=== PATIENT | female | born 1990 | race American Indian/Alaskan Native ===

== ENCOUNTER 2016-11-06 17:43 | Emergency (ER) | payer MEDICAID, OTHER ==
[2016-11-06] MEDS ORDERED: Acetaminophen/HYDROcodone 325-10 MG Tab PO ONE (20:41)
--- NOTE | 2016-11-06 20:46 | EDM.PDOC ---
ED HPI GENERAL MEDICAL PROBLEM - General Chief Complaint: Lower Extremity Injury/Pain Stated Complaint: KNEE INJURY, [id number] Time Seen by Provider: 11/06/16 20:42 Source of Information: Reports: Patient History Limitations: Reports: No Limitations - History of Present Illness INITIAL COMMENTS - FREE TEXT/NARRATIVE: twisted left knee during basketball [employer]. - Related Data Allergies Allergy/AdvReac Type Severity Reaction Status Date / Time No Known Drug Allergies Allergy none Verified 01/13/14 11:15 Home Meds: Home Meds Vit #108/Iron/FA [ One Tablet] 1 tab PO DAILY 01/13/14 [History ] Social & Family History - Tobacco Use Smoking Status *Q: Never Smoker Second Hand Smoke Exposure: No - Alcohol Use Days Per Week of Alcohol Use: 0 - Recreational Drug Use Recreational Drug Use: No Review of Systems - Review of Systems Review Of Systems: ROS reveals no pertinent complaints other than HPI. ED EXAM, GENERAL - Physical Exam Exam: See Below Exam Limited By: No Limitations General Appearance: Alert, WD/WN, Mild Distress, Other (discomfort) Ears: Hearing Grossly Normal Throat/Mouth: Normal Voice, No Airway Compromise Head: Atraumatic Neck: Non-Tender, Full Range of Motion Respiratory/Chest: No Respiratory Distress Cardiovascular: Regular Rate, Rhythm GI/Abdominal: Soft, Non-Tender Extremities: Limited Range of Motion, Other (left knee mild swelling, tendermR/P , NV wnl, gait limited to pain) Neurological: Alert, Oriented, Normal Cognition, No Motor/Sensory Deficits Psychiatric: Tearful Skin Exam: Warm, Dry, Normal Color Lymphatic: No Adenopathy Course - Orders/Labs/Meds Orders: Active Orders 24 hr Category Date Time Status Knee 3V Lt [CR] Urgent Exams 11/06/16 19:22 Taken Acetaminophen/HYDROcodone [[place]ston 325-10 MG] Med 11/06/16 20:41 Once 1 tab PO ONETIME ONE - Re-Assessments/Exams Free Text/Narrative Re-Assessment/Exam: 11/06/16 20:43 results discussed with pt. Departure - Departure Time of Disposition: 20:43 Disposition: Home, Self-Care 01 Condition: Good Clinical Impression: Sprain of left knee Qualifiers: Encounter type: initial encounter Involved ligament of knee: lateral collateral ligament Qualified Code(s): S83.422A - Sprain of lateral collateral ligament of left knee, initial encounter - Discharge Information Instructions: Knee Sprain, Ijlj-[id number] Additional Instructions: 1) elevate leg as much as possible next 48 hours 2) ice intermittently for swelling 3) wear immobilizer and use crutches 4) see clinic Tuesday for possible MRI SCAN of knee rx given; vicodin 5/325mg bid prn x 6 - My Orders Last 24 Hours: My Active Orders 11/06/16 19:22 Knee 3V Lt [CR] Urgent 11/06/16 20:41 Acetaminophen/HYDROcodone [Aston 325-10 MG] 1 tab PO ONETIME ONE - Assessment/Plan Last 24 Hours: My Active Orders 11/06/16 19:22 Knee 3V Lt [CR] Urgent 11/06/16 20:41 Acetaminophen/HYDROcodone [[place]ston 325-10 MG] 1 tab PO ONETIME ONE
[2016-11-06 21:02] VITALS: BP 118/78
== END 2016-11-06 20:57 | disposition home or self-care (01) ==
LOC: DL.ED 17:43
DX: S83.422A Sprain of lateral collateral ligament of left knee, initial encounter (principal); X50.1XXA Overexertion from prolonged static or awkward postures, initial encounter; Y93.67 Activity, basketball
CPT/HCPCS: 73562; 99283; A9270

== ENCOUNTER 2019-01-24 07:01 | Inpatient (IN) | payer MEDICAID ==
[2019-01-24] MEDS: Lactated Ringers 1,000 ML IV SCH (08:00)
[2019-01-24] MEDS ORDERED: Acetaminophen 325 MG Tab PO PRN ×2 (08:31)
[2019-01-24] MEDS ORDERED: Ondansetron 4 MG/2 ML SDV IV PRN (08:31)
[2019-01-24] MEDS ORDERED: fentaNYL 100 MCG/2 ML SDV IVPUSH PRN (08:31)
[2019-01-24] MEDS ORDERED: Sodium Chloride 0.9% 10 ML Syringe FLUSH PRN (08:31)
[2019-01-24] MEDS ORDERED: Carboprost Tromethamine 250 MCG/1 ML Amp IM PRN (08:31)
[2019-01-24] MEDS ORDERED: Methylergonovine 0.2 MG/1 ML Amp IM PRN (08:31)
[2019-01-24] MEDS ORDERED: Misoprostol 400 MCG (4 X 100 MCG TAB) RECTAL PRN (08:31)
[2019-01-24] MEDS ORDERED: Lidocaine 1% 30 ML SDV INJECT PRN (08:31)
[2019-01-24] MEDS ORDERED: Lactated Ringers 1,000 ML IV ONE (08:31)
[2019-01-24] MEDS ORDERED: Tranexamic Acid 1,000 MG in Sodium Chloride 0.9% 100 ML IV PRN (08:31)
[2019-01-24] MEDS ORDERED: Oxytocin/Normal Saline 30 UNIT/500 ML BAG IV SCH (08:45)
[2019-01-24] MEDS ORDERED: Lactated Ringers 1,000 ML IV SCH ×2 (08:45)
[2019-01-24] MEDS: Oxytocin/Normal Saline 30 UNIT/500 ML BAG IV SCH (08:52)
--- NOTE | 2019-01-24 08:54 | PCM.SN ---
- Free Text/Narrative Note: OB History and Physical 01/24/19 Chief Complaint: induction of labor HPI: Nydia is a 28yo at 39w0d (CELSA 01/31/19) who presents for elective induction of labor. Risks, benefits and alternatives were discussed and patient would like to proceed. She reports active movement. She has had some cramping but no regular contractions. has been uncomplicated except for induced anemia. ROS: Negative for headache, nausea, vomiting, diarrhea, fever, chills, abdominal pain, hematuria, dysuria, contractions, loss of fluid or bleeding per vagina. Allergies: NKDA Medications: Medical Hx: anemia of , h/o large for gestation infant Surgical Hx: none Family Hx: Mom has asthma and dad has a heart defect. No known seizures, heart disease, defects, bleeding/clotting disorders. OB Hx: with spontaneous vaginal delivery of 9 pound infants at 40w5d and 41w6d. Social Hx: Lives with her 2 kids and boyfriend. Denies smoking, drinking or recreational drugs. Labs: Blood Type: O Positive Rubella: Immune HBSAg: Negative GBS: Negative Gonorrhea/Chlamydia: Not detected HIV: Nonreactive RPR: Nonreactive Physical Exam: Vitals: BP 131/72, HR 64, Temp 97.4 Gen: No distress CV: Well-perfused, 2+ distal pulses, regular rate and rhythm, no audible murmurs Resp: Non-labored, symmetrical chest expansion, clear to auscultation Abd: gravid, soft, non tender Ext: Moves all extremities, no edema. SVE: 04/03/-2, posterior FHT: 130, moderate variability, accelerations present, no decelerations apparent CTX: occasionally Assessment: Nydia is a 28yo at 39w0d (CELSA 01/31/19) who presents for elective induction of labor. Cat I Strip. Anemia of Plan: - admit for induction of labor - routine cares - start pitocin, up 2x2 to max of 20 - will AROM when able - will follow closely Sharla Gutierrez MD
[2019-01-25] MEDS: Lactated Ringers 1,000 ML IV SCH ×3 (00:58→03:48)
[2019-01-25] MEDS ORDERED: Sodium Bicarbonate 4.2% 2.5 MEQ/5 ML SDV ONE (01:16)
[2019-01-25] MEDS ORDERED: fentaNYL 100 MCG/2 ML SDV ONE (01:16)
--- NOTE | 2019-01-25 01:38 | PCM.SN ---
- Free Text/Narrative Note: Intrathecal. Sitting position, sterile prep and drape, 1 % lidocaine w bicarb for skinwheal to L3 L4 interspace. Introducer, 24 ga pencan x 1. Pos CSF neg heme neg parasthesia. 20 mcg pf sufenta, 30 mcg pf fentanyl 0.4 ml pf NS and 6 mg of 0.75% of bupivacaine injected after CSF aspiration. Pt to L lateral position. Procedure time 0115 to 0145
--- NOTE | 2019-01-25 03:05 | PCM.DEL ---
L & D Note - General Info Date of Service: 01/25/19 (0238) Mother's Due Date: 01/31/19 - Delivery Note Labor: Induced by Oxytocin Delivery Outcome: Livebirth Delivery Method: Spontaneous Vaginal Delivery-Single Infant Delivery Mode: Spontaneous Presentation: Left Occiput Anterior (FÁTIMA) Nuchal Cord: None Anesthesia Type: Intrathecal, Nitrous Oxide Amniotic Fluid Description: Clear Episiotomy Type: None Laceration: None Placenta: Intact, Spontaneous Cord: 3 Vessels Estimated Blood Loss: 250 Resuscitation Needed: No [place]: Stimulated Score 1 min: 9 Score 5 min: 9 Second Stage Interventions: Reports: Pushing Effectively Delivery Comments (Free Text/Narrative):: Nydia is a 28 yo at 39w1d who presented for elective induction of labor at 39w0d. Category 1 tracing upon admission. She was dilated to 2 cm upon admission. She progressed with induction with pitocin. Artificial rupture of membranes around 1645 with clear fluid. She was complete at 0230. She began pushing at approximately 0230. Delivered a liveborn male infant at 0238. Vigorous with spontaneous cry. Apgars of 9 and 9. weight 3655 g. Placenta delivered spontaneously intact with a 3 vessel cord. IV Pitocin was started shortly after delivery of the placenta. EBL 250 mL. Intact perineum. Hemostasis confirmed. Mother and infant doing well. Induction Criteria - Desir Score Desir Score Dilation: 1-2 cm Desir Score Effacement: 40-50% Desir Score Infant's Station: -2 Desir Score Consistency: Soft Desir Score Cervix Position: Midposition Desir Score Total: 6 Desir Score Presenting Part: Reports: Cephalic - Induction Gestational Age >/= 39 wks: Yes Estimated Pelvis: Reports: Adequate Reassuring Monitoring Strip: Yes Absence of Tachy Systole: Yes - General Info Date of Service: 01/25/19 Functional Status: Reports: Pain Controlled - Patient Data Vitals - Most Recent: Last Vital Signs Temp 96.7 F 01/24/19 22:53 Pulse 74 01/24/19 23:30 Resp 16 01/24/19 19:30 BP 155/82 H 01/24/19 23:30 Pulse Ox Weight - Most Recent: 112.037 kg - Problem List Review Problem List Initiated/Reviewed/Updated: Yes
[2019-01-25] MEDS ORDERED: Metoclopramide 10 MG/2 ML SDV IVPUSH STA (03:28)
[2019-01-25] MEDS ORDERED: diphenhydrAMINE 50 MG/ML SDV IVPUSH PRN (03:32)
[2019-01-25] MEDS: Oxytocin/Normal Saline 30 UNIT/500 ML BAG IV SCH (03:43)
[2019-01-25] MEDS ORDERED: Sodium Chloride 0.9% 10 ML Syringe FLUSH PRN (05:18)
[2019-01-25] MEDS ORDERED: Simethicone 80 MG Tab.Chew PO PRN (05:18)
[2019-01-25] MEDS ORDERED: Oxytocin 10 Units/1 ML SDV IM PRN (05:18)
[2019-01-25] MEDS ORDERED: Zolpidem 5 MG Tab PO PRN (05:18)
[2019-01-25] MEDS ORDERED: Benzocaine/Menthol 20%-0.5% Spray 56 GM Canister TOP PRN (05:18)
[2019-01-25] MEDS: Prenatal Multivitamin with Calcium/Folic Acid/Iron Tab PO SCH (08:39)
[2019-01-25] MEDS: Docusate Sodium 100 MG Cap PO PRN ×2 (08:39→20:47)
[2019-01-25] MEDS: Ibuprofen 800 MG Tab PO PRN (20:47)
[2019-01-26] MEDS: Prenatal Multivitamin with Calcium/Folic Acid/Iron Tab PO SCH (08:17)
[2019-01-26] MEDS: Docusate Sodium 100 MG Cap PO PRN (08:17)
[2019-01-26] MEDS: Ibuprofen 800 MG Tab PO PRN (08:17)
[2019-01-26 08:31] VITALS: BP 124/76; PULSE 71
--- NOTE | 2019-01-26 09:06 | PCM.SN ---
- Free Text/Narrative Note: Progress Note/Discharge Summary Admit date: 01/24/19 for induction, 01/25/19 delivery Discharge date: 01/26/19 Delivering Physician: Dr. Gutierrez Discharging Physician: Dr. Gutierrez Admission Diagnoses: 28 y/o at 39w0d Anemia of Elective induction of labor Summary of Hospital Course: Nydia is a 28 yo at 39w1d who presented for elective induction of labor at 39w0d. Category 1 tracing upon admission. She was dilated to 2 cm upon admission. She progressed with induction with pitocin. Artificial rupture of membranes around 1645 with clear fluid. She was complete at 0230. She began pushing at approximately 0230. Delivered a liveborn male infant at 0238 via . Vigorous infant with spontaneous cry. Apgars of 9 and 9. weight 3655 g. Placenta delivered spontaneously intact with a 3 vessel cord. IV Pitocin was started shortly after delivery of the placenta. EBL 250 mL. Intact perineum. Hemostasis confirmed. Mother and infant doing well. The patient had an unremarkable course. By day 1, the patient was doing well; ambulating, voiding, and tolerating general diet. Her pain was well controlled with oral pain medications, and was she was discharged to home. Discharge Exam: Gen: No distress CV: Well-perfused, 2+ distal pulses Resp: Non-Labored, symmetrical chest expansion Abd: Fundus is firm and below umbilicus. Ext: Moves all extremities well, no edema. Discharge (or Final) Diagnoses: 1. Intrauterine at 39w1d at time of delivery 2. over intact perineum 3. Anemia of Discharge Details: Admission Condition: good Discharged Condition: good Disposition: Home Discharge Medications: over the counter ibuprofen Diet: regular diet Activity: no heavy lifting for 2 weeks, pelvic rest for 6 weeks. Follow-up with Dr. Gutierrez in 6-8 weeks for visit. Sharla Gutierrez MD
[2019-01-26] MEDS ORDERED: fentaNYL 100 MCG/2 ML SDV ITHECAL ONE (10:14)
[2019-01-26] MEDS ORDERED: Sodium Bicarbonate 4.2% 2.5 MEQ/5 ML SDV ONE (10:14)
--- NOTE | 2019-01-26 11:46 | PCM.SN ---
- Free Text/Narrative Note: Post Delivery Day #0 Subjective: Patient is ambulating without assistance and tolerating oral intake. Her pain has been well-controlled, and her bleeding has been minimal. She has not had nausea, vomiting, blurred vision, diarrhea, shortness of breath, or any other complaints. She is bottle feeding. Objective: Vitals stable Gen: No distress CV: Well-perfused, 2+ distal pulses Resp: Non-labored, symmetrical chest expansion Abd: Fundus is firm and below umbilicus. Ext: Moves all extremities Well, no edema. Assessment: Status post ( day #1) who is doing well. Anemia of Intact perineum Plan: - Routine nursing - vitamin - Likely discharge tomorrow Sharla Gutierrez MD
== END 2019-01-26 10:15 | disposition home or self-care (01) | DRG 807 ==
LOC: DL.OBCHECK 07:01 → DL.OB 08:31 → EDSTATUS 22:44 → OBSVTOIN 01-25 03:11
PROVIDERS: ADMIT Family Medicine; ATTEND Family Medicine
PROC: 10E0XZZ Delivery of Products of Conception, External Approach (ICD-10-PCS; principal; 2019-01-25)
PROC: 10907ZC Drainage of Amniotic Fluid, Therapeutic from Products of Conception, Via Natural or Artificial Opening (ICD-10-PCS; 2019-01-25)
PROC: 3E033VJ Introduction of Other Hormone into Peripheral Vein, Percutaneous Approach (ICD-10-PCS; 2019-01-25)
PROC: 3E0R3BZ Introduction of Anesthetic Agent into Spinal Canal, Percutaneous Approach (ICD-10-PCS; 2019-01-25)
DX: O99.02 Anemia complicating childbirth (principal); D64.9 Anemia, unspecified; Z37.0 Single live birth; Z3A.39 39 weeks gestation of pregnancy
CPT/HCPCS: 36415; 59409; 85027; A9270-GY; J2405; J2590; J2765; J3010; J7120

== ENCOUNTER 2021-01-29 20:10 | Inpatient (IN) | payer MEDICAID ==
[2021-01-29] MEDS ORDERED: Lidocaine 1% 30 ML SDV INJECT PRN (20:54)
[2021-01-29] MEDS ORDERED: Tranexamic Acid 1,000 MG in Sodium Chloride 0.9% 100 ML IV PRN (20:54)
[2021-01-29] MEDS ORDERED: Carboprost Tromethamine 250 MCG/1 ML Amp IM PRN (20:54)
[2021-01-29] MEDS ORDERED: Naloxone 2 MG/2 ML Syringe IVPUSH PRN (20:54)
[2021-01-29] MEDS ORDERED: Lactated Ringers 1,000 ML IV ONE (20:54)
[2021-01-29] MEDS ORDERED: Ondansetron 4 MG/2 ML SDV IVPUSH PRN ×2 (20:54)
[2021-01-29] MEDS ORDERED: ePHEDrine 50 MG/ML SDV IVPUSH PRN (20:54)
[2021-01-29] MEDS ORDERED: Acetaminophen 325 MG Tab PO PRN (20:54)
[2021-01-29] MEDS ORDERED: Promethazine 25 MG/ML SDV IM PRN (20:54)
[2021-01-29] MEDS ORDERED: Misoprostol 400 MCG (4 X 100 MCG TAB) RECTAL PRN (20:54)
[2021-01-29] MEDS ORDERED: Methylergonovine 0.2 MG/1 ML Amp IM PRN (20:54)
[2021-01-29] MEDS ORDERED: fentaNYL 100 MCG/2 ML SDV IVPUSH PRN (20:54)
[2021-01-29] MEDS ORDERED: Lactated Ringers 1,000 ML IV SCH (21:00)
[2021-01-29] MEDS ORDERED: Lactated Ringers 500 ML IV SCH (21:00)
[2021-01-29] MEDS ORDERED: Oxytocin/Normal Saline 30 UNIT/500 ML BAG IV SCH (21:00)
[2021-01-29] MEDS ORDERED: EPINEPHrine 1 MG/ML SDV ONE ×2 (21:15→21:25)
[2021-01-29] MEDS ORDERED: Sodium Chloride 0.9% 20 ML SDV IV ONE (21:15)
[2021-01-29] MEDS ORDERED: Sodium Bicarbonate 4.2% 2.5 MEQ/5 ML SDV ONE ×2 (21:15→21:26)
[2021-01-29] MEDS ORDERED: fentaNYL 100 MCG/2 ML SDV ITHECAL ONE (21:15)
[2021-01-29] MEDS ORDERED: fentaNYL 100 MCG/2 ML SDV ONE (21:25)
--- NOTE | 2021-01-29 21:54 | PCM.SN.2 ---
- Free Text/Narrative Note: Intrathecal. Sitting position, sterile prep and drape. 1% lidocaine w bicarb for skinwheal to L3 L4 interspace. Introducer, 24 ga Pencan x 1. Pos CSF, neg heme, neg parasthesia. 1:1000 pf Epi wash, 20 mcg pf Sufenta, 30 mcg pf Fentanyl, 0.4 ml pf NS and 6 mg of 0.75% Marcaine injected after CSF aspiration. Pt to L la teral position. Procedure timer 0115 to 7536
--- NOTE | 2021-01-29 22:42 | HP ---
CHIEF COMPLAINT: Increased force and frequency of contractions. HISTORY OF PRESENT ILLNESS: 30-year-old 4, para 3-0-0-3, currently at 39-3/7 weeks' gestation based on 6-week ultrasound reports she started having contractions around 4 o'clock this morning that have become more consistent and stronger throughout the day. Called Labor and Delivery this evening with contractions about every 7 to 8 minutes, but wanted to wait until she was done with her laundry before coming into the hospital. Reports some leakage or discharge throughout the day. No significant bleeding. movement has been good. No symptoms of labor, and denies any recent signs of illness or other concerns. OB HISTORY: She had an ultrasound, 6 weeks' gestation for confirmation of dating. Normal 20-week ultrasound with posterior placenta. 29-week ultrasound performed showing baby at the 76 percentile for growth. LABS: Blood type O positive. Antibody screen negative. Rubella immune. Syphilis negative in the first and third trimesters. Hepatitis B negative. HIV negative. Gonorrhea, chlamydia negative. TSH normal 0.71. Hepatitis C nonreactive. Wet prep negative. Group B strep negative. Urine culture in the end of December for Staph epidermidis. Quad screen was normal. 1-hour glucose tolerance test of 138. 3-hour test was normal. #1 delivered, 06/16/2011, 41 weeks 6 days' gestation, term female , 4120 g, intrathecal anesthesia. Her name is Tiny. #2, 01/13/2014, 40 weeks 5 days' gestation, term male , weighing 4196 g, intrathecal for anesthesia. His name is [place]. #3, 01/25/2019, 39 weeks 1 day gestation, male weighing 3655 g. His name is Fay. PAST MEDICAL HISTORY: Blood type O positive, history of delivery of large for gestational age infants, history of chickenpox. SURGICAL HISTORY: None. FAMILY HISTORY: Mother alive with asthma. Father alive with a heart defect and requires a pacemaker. There are 3 sisters, 2 of whom are healthy. The third one is unknown to the patient. 9 brothers, all reportedly healthy. Maternal and paternal grandparents are all , but she reports they were all healthy. There was a cousin with an arrhythmia. No family history of seizure disorders, heart disease, defects, bleeding problems, or clotting disorders. SOCIAL HISTORY: The patient has a history of some light cigarette smoking. No alcohol or drug use in . She is not currently working and raises the children. Her boyfriend, Fay, is working a job at the [employer] and they live here in [place]. MEDICATIONS: vitamin 1 daily, iron 325 mg daily. ALLERGIES: No known drug allergies. REVIEW OF SYSTEMS: She denies any chest pain, shortness of breath, headaches, blurry vision, nausea, vomiting, diarrhea, constipation, fevers, chills, new skin rashes, changes in edema, change in urine output, diarrhea, constipation, or other acute concerns. Otherwise, pertinent findings under the HPI. OBJECTIVE: Vital Signs: Blood pressure 137/78, temperature is 97.2, pulse 76, respiratory rate of 18. HEENT: Grossly unremarkable. Neck: Supple without adenopathy. Heart: Regular without murmur. Lungs: Clear to auscultation bilaterally. Abdomen: Gravid, soft, nontender. Positive bowel sounds. heart tones tracing 140 beats per minute at baseline. Moderate tezd-nd-srar variability. Accelerations noted. [place] showing contractions at every 3 to 4 minutes. Genitourinary: Initial exam of 5+ cm, 100% effaced, bulging bag of water, vertex presentation per nurse's exam. Extremities: No edema, erythema, or tenderness noted. Neurologic: No focal deficits. ASSESSMENT: 1. Active labor. 2. 4, para 3-0-0-3. 3. 39-3/7 weeks' gestation. 4. History of hemorrhage. 5. History of babies with macrosomia. 6. Anemia of . 7. Poor weight gain of . She has actually lost 23 pounds. 8. Blood type O positive, rubella immune, and group B Streptococcus negative. PLAN: At this time, the patient is requesting intrathecal, and so after she receives that will anticipate performing artificial rupture of membranes and eventual vaginal delivery. Mother plans on bottle feeding and will be anticipating discharge home on day #1 or 2, pending clinical course for mother and baby. MODL /[id number] [facility]
[2021-01-29] MEDS ORDERED: Simethicone 80 MG Tab.Chew PO PRN (23:50)
[2021-01-29] MEDS ORDERED: Benzocaine/Menthol 20%-0.5% Spray 78 GM Cannister TOP PRN (23:50)
--- NOTE | 2021-01-30 00:36 | DEL ---
DATE: 01/29/2021 PREPROCEDURE DIAGNOSES: 1. 39 and 3/7 weeks intrauterine based on 6-week ultrasound. 2. 4, para 3-0-0-3. 3. History of hemorrhage. 4. History of delivery of macrosomic infants. 5. Anemia of . 6. Weight loss of , down 23 pounds. 7. Blood type O positive, rubella immune, and group B strep negative. POSTPROCEDURE DIAGNOSES: 1. 39 and 3/7 weeks intrauterine based on 6-week ultrasound. 2. 4, now para 4-0-0-4. Status post uncomplicated spontaneous vaginal delivery. 3. History of hemorrhage. 4. History of delivery of macrosomic infants. 5. Anemia of . 6. Weight loss of , down 23 pounds. 7. Blood type O positive, rubella immune, and group B strep negative. BRIEF HISTORY: A 30-year-old female, presented to the hospital with spontaneous onset of labor and was about 6 cm dilated and 100% effaced. Orders were placed and labs received. Intrathecal administered for pain relief and then artificial rupture of membranes performed with good return of clear fluid. She then was able to labor peacefully about an hour and a half before reaching complete and then pushed for 6 contractions resulting in delivery as below. DETAILS: With the patient in dorsal lithotomy position, she delivered a viable female in the ROP position over intact perineum. Baby was dried, stimulated. Nose and mouth bulb suctioned and placed up on mother's abdomen. After a delay, 3-vessel umbilical cord was doubly clamped and then cut and then cord blood sample obtained. Placenta delivered by gentle cord traction and concomitant uterine massage, inspected, and intact. Mother tolerated procedure well. COMPLICATIONS: None EBL: 100 mL. FINDINGS: Viable female . Weight 3580 grams and 8 & 9 score. DISPOSITION: Mother and baby to stay in the room to initiate the skin to skin and bonding. [facility] /[id number] [facility]
[2021-01-30] MEDS: Prenatal Multivitamin with Calcium/Folic Acid/Iron Tab PO SCH (08:41)
[2021-01-30] MEDS: Docusate Sodium 100 MG Cap PO PRN ×2 (08:41→20:37)
[2021-01-30] MEDS: Ferrous Sulfate 325 MG Tab PO SCH (08:41)
[2021-01-30] MEDS: Ibuprofen 800 MG Tab PO PRN ×2 (08:41→20:37)
--- NOTE | 2021-01-30 10:55 | PCM.PNPP ---
- General Info Date of Service: 01/30/21 Subjective Update: Patient is doing well. Some uterine cramping and tenderness but appropriate. No other complaints. No fever, chills, nausea, vomiting, headache or lightheadedness. Bottle feeding. Urinating without difficulty. Tolerating a general diet. Has been ambulating. No concerns per patient or per nursing staff. Functional Status: Reports: Pain Controlled, Tolerating Diet, Ambulating, New Symptoms - Review of Systems General: Reports: No Symptoms HEENT: Reports: No Symptoms Pulmonary: Reports: No Symptoms Cardiovascular: Reports: No Symptoms Gastrointestinal: Reports: Abdominal Pain Genitourinary: Reports: No Symptoms Musculoskeletal: Reports: No Symptoms Skin: Reports: No Symptoms Neurological: Reports: No Symptoms - General Info Date of Service: 01/30/21 - Patient Data Vital Signs - Most Recent: Last Vital Signs Temp 37.3 C 01/30/21 09:07 Pulse 79 01/30/21 09:07 Resp 16 01/30/21 09:07 BP 107/65 01/30/21 09:07 Pulse Ox Weight - Most Recent: 108.409 kg I&O - Last 24 Hours: Intake & Output 01/29/21 01/30/21 01/30/21 22:59 06:59 14:59 Intake Total 1450 Balance 1450 Lab Results - Last 24 Hours: Laboratory Results - last 24 hr 01/29/21 01/29/21 Range/Units 20:30 21:05 WBC 12.5 H (5.0-10.0) 10^3/uL RBC 4.55 (4.2-5.4) 10^6/uL Hgb 11.4 L (12.0-16.0) g/dL Hct 35.0 L (37.0-47.0) % MCV 76.9 L (80-100) fL MCH 25.1 L (27.0-34.0) pg MCHC 32.6 L (33.0-35.0) g/dL Plt Count 221 (150-450) 10^3/uL Neut % (Auto) 72.3 (42.2-75.2) % Lymph % (Auto) 20.7 (20.5-50.1) % [place] % (Auto) 5.7 (2-8) % Eos % (Auto) 1.1 (1.0-3.0) % Baso % (Auto) 0.2 (0.0-1.0) % SARS-CoV-2 RNA (URBAN) Negative (NEGATIVE) Med Orders - Current: Current Medications Acetaminophen (Acetaminophen 325 Mg Tab) 650 mg PO Q4H PRN PRN Reason: Pain (Mild 1-3) and fever Benzocaine/Menthol (Benzocaine/Menthol 20%-0.5% [place] 78 Gm Cannister) 0 gm TOP Q4H PRN PRN Reason: Perineal comfort measures Docusate Sodium (Docusate Sodium 100 Mg Cap) 100 mg PO BID PRN PRN Reason: Constipation Last Admin: 01/30/21 08:41 Dose: 100 mg Documented by: Ferrous Sulfate (Ferrous Sulfate 325 Mg Tab) 325 mg PO WITHBREAKFAST PAT Last Admin: 01/30/21 08:41 Dose: 325 mg Documented by: Tranexamic Acid 1,000 mg/ (Sodium Chloride) 110 mls @ 660 mls/hr IV ONETIME PRN PRN Reason: Bleeding Oxytocin/Sodium Chloride (Pitocin In Ns 30 Unit/500 Ml) 30 unit in 500 mls @ 2 mls/hr IV TITRATE PAT; Protocol Last Titration: 01/30/21 02:34 Dose: Infused Documented by: Ibuprofen (Ibuprofen 800 Mg Tab) 800 mg PO Q8H PRN PRN Reason: Cramping Last Admin: 01/30/21 08:41 Dose: 800 mg Documented by: Methylergonovine Maleate (Methylergonovine 0.2 Mg/1 Ml Amp) 0.2 mg IM ASDIRECTED PRN PRN Reason: Hemorrhage Misoprostol (Misoprostol 400 Mcg (4 X 100 Mcg Tab)) 800 mcg RECTAL ASDIRECTED PRN PRN Reason: Hemorrhage Prenat Multivit/Dar[place]/Iron/Folic Ac ( Multivitamin With Calcium/Folic Acid/Iron Tab) 1 each PO DAILY PAT Last Admin: 01/30/21 08:41 Dose: 1 each Documented by: Simethicone (Simethicone 80 Mg Tab.Chew) 80 mg PO Q4H PRN PRN Reason: Gas Discontinued Medications Carboprost Tromethamine (Carboprost Tromethamine 250 Mcg/1 Ml Amp) 250 mcg IM ASDIRECTED PRN PRN Reason: HEMORRHAGE Ephedrine Sulfate (Ephedrine 50 Mg/Ml Sdv) 5 mg IVPUSH Q5M PRN PRN Reason: See Label Comments Epinephrine HCl (Epinephrine 1 Mg/Ml Sdv) Confirm Administered Dose 1 mg .ROUTE .STK-MED ONE Stop: 01/29/21 21:26 Last Admin: 01/30/21 00:44 Dose: Not Given Documented by: Fentanyl (Fentanyl 100 Mcg/2 Ml Sdv) 100 mcg IVPUSH Q1H PRN PRN Reason: Pain (moderate 4-6) Fentanyl (Fentanyl 100 Mcg/2 Ml Sdv) Confirm Administered Dose 100 mcg .ROUTE .STK-MED ONE Stop: 01/29/21 21:26 Last Admin: 01/30/21 00:44 Dose: Not Given Documented by: Lactated Ringer's (Ringers, Lactated) 1,000 mls @ 999 mls/hr IV BOLUS ONE Stop: 01/29/21 21:54 Last Admin: 01/30/21 06:31 Dose: Not Given Documented by: Lactated Ringer's (Ringers, Lactated) 1,000 mls @ 125 mls/hr IV ASDIRECTED [facility] Last Admin: 01/29/21 21:15 Dose: 125 mls/hr Documented by: Lactated Ringer's (Ringers, Lactated) 500 mls @ 999 mls/hr IV SEECOMMENT [facility] Lidocaine HCl (Lidocaine 1% 30 Ml Sdv) 30 ml INJECT ASDIRECTED PRN PRN Reason: Perineal Repair Naloxone HCl (Naloxone 2 Mg/2 Ml Syringe) 0.1 mg IVPUSH SEECOMMENT PRN PRN Reason: Respiratory Depression Ondansetron HCl (Ondansetron 4 Mg/2 Ml Sdv) 4 mg IVPUSH Q4H PRN PRN Reason: Nausea/Vomiting Last Admin: 01/29/21 23:12 Dose: 4 mg Documented by: Ondansetron HCl (Ondansetron 4 Mg/2 Ml Sdv) 4 mg IVPUSH Q4H PRN PRN Reason: Nausea/Vomiting Promethazine HCl (Promethazine 25 Mg/Ml Sdv) 12.5 mg IM Q6H PRN PRN Reason: Nausea/Vomiting Sodium Bicarbonate (Sodium Bicarbonate 4.2% 2.5 Meq/5 Ml Sdv) Confirm Administered Dose 2.5 meq .ROUTE .STK-MED ONE Stop: 01/29/21 21:27 Last Admin: 01/30/21 00:44 Dose: Not Given Documented by: Sufentanil Citrate (Sufentanil 50 Mcg/1 Ml Amp) Confirm Administered Dose 50 mcg .ROUTE .STK-MED ONE Stop: 01/29/21 21:27 Last Admin: 01/30/21 00:44 Dose: Not Given Documented by: - Interaction Infant Disposition, : in Room with Family Infant Interaction: Holding Infant Feeding: Bottle Fed Support Person: Significant Other - Recovery Exam Fundal Tone: Firm Fundal Level: 1 Fingerbreadths Below Umbilicus Fundal Placement: Midline Lochia Amount: Small Lochia Color: Rubra/Red Perineum Description: Intact, Minimal Bruising/Swelling Bladder Status: Voiding - Exam General: Alert, Oriented HEENT: Pupils Equal Lungs: Clear to Auscultation, Normal Respiratory Effort Cardiovascular: Regular Rate, Regular Rhythm GI/Abdominal Exam: Soft, Other (Mild uterine tenderness) Extremities: Pedal Edema (Trace) Skin: Warm, Dry, Intact - Problem List & Annotations (1) care in third trimester SNOMED Code(s): 660511383, [id number], 88637209, 363989669, [id number] Code(s): Z34.93 - ENCNTR FOR SUPRVSN OF NORMAL PREG, UNSP, THIRD TRIMESTER Status: Acute Current Visit: Yes (2) (normal spontaneous vaginal delivery) SNOMED Code(s): 53709975, 265668795 Code(s): O80 - ENCOUNTER FOR FULL-TERM UNCOMPLICATED DELIVERY Status: Acute Current Visit: Yes - Problem List Review Problem List Initiated/Reviewed/Updated: Yes - Assessment Assessment:: 30-year-old now s/p at 39w3d - Plan Plan:: 1. Continue routine cares 2. Bottle feeding 3. Anticipate discharge tomorrow. Dr. Lolis Metz MD
[2021-01-31] MEDS: Ferrous Sulfate 325 MG Tab PO SCH (08:10)
[2021-01-31] MEDS: Ibuprofen 800 MG Tab PO PRN (08:10)
[2021-01-31] MEDS: Prenatal Multivitamin with Calcium/Folic Acid/Iron Tab PO SCH (08:10)
[2021-01-31 08:19] VITALS: BP 107/67; PULSE 63
--- NOTE | 2021-01-31 10:31 | DISCH ---
ADMIT DIAGNOSES: 1. Intrauterine at 39-3/7 weeks by 6-week ultrasound. 2. Group B streptococcus negative. 3. Active labor upon admission. 4. History of hemorrhage in the past. 5. History of delivery of macrosomic infant in the past. 6. Anemia of . 7. Poor weight gain, down 23 pounds per chart review. 8. G4, P3-0-0-3. DISCHARGE DIAGNOSES: 1. Intrauterine at 39-3/7 weeks by 6-week ultrasound. 2. Group B streptococcus negative. 3. Active labor upon admission. 4. History of hemorrhage in the past. 5. History of delivery of macrosomic infant in the past. 6. Anemia of . Hemoglobin 11.4. 7. Poor weight gain, down 23 pounds per chart review. 8. G4, P3-0-0-3. HISTORY OF PRESENT ILLNESS: Please see H and P. SUMMARY OF HOSPITAL COURSE: The patient was admitted on the above date with the above diagnosis to Labor and Delivery. Did have an intrathecal placed, went on to have a spontaneous vaginal delivery yielding a female, score 8 and 9, weighing 7 pounds 14 ounces (3580 g). Please see delivery note for further details. day #1, please see progress note. day #2, date of discharge, the patient was tolerating p.o., was ambulating, urinating, passing flatus, requesting discharge. PHYSICAL EXAMINATION: Vital Signs: Last set of vitals; temp 98.4, heart rate 63, blood pressure 107/67, respiratory rate 16. Lungs: Clear to auscultation bilaterally. No increased work of breathing. Heart: S1, S2. Regular rate and rhythm. Abdomen: Firm uterus around the umbilicus. No peripheral edema. No calf pain. CONDITION ON DISCHARGE COMPARED TO CONDTION ON ADMISSION: Improved. DISCHARGE INSTRUCTIONS: Diet: As tolerated. Activity: No lifting more than 20 pounds. No sit-ups, straining, and pelvic rest for next 6 weeks, with immediate return to fertility discussed with patient. Reasons to return or go to the emergency room were discussed with patient in detail including, but not limited to temperature greater than 100.4, foul- smelling discharge, red or tender breasts, or increased vaginal bleeding. FOLLOWUP: 6 weeks . Did discuss the importance of followup and ramifications of not doing so, as well as importance of following up with her and reasons to return or go to the emergency in regard to her baby as well. Please see discharge paperwork for further details. [facility] /[id number]
== END 2021-01-31 09:40 | disposition home or self-care (01) | DRG 807 ==
LOC: DL.OBCHECK 20:10 → DL.OB 20:54 → OBSVTOIN 23:27
PROVIDERS: ADMIT Family Medicine; ATTEND Family Medicine
PROC: 10E0XZZ Delivery of Products of Conception, External Approach (ICD-10-PCS; principal; 2021-01-29)
PROC: 10907ZC Drainage of Amniotic Fluid, Therapeutic from Products of Conception, Via Natural or Artificial Opening (ICD-10-PCS; principal; 2021-01-29)
PROC: 3E0R3BZ Introduction of Anesthetic Agent into Spinal Canal, Percutaneous Approach (ICD-10-PCS; principal; 2021-01-29)
PROC: 00HU33Z Insertion of Infusion Device into Spinal Canal, Percutaneous Approach (ICD-10-PCS; principal; 2021-01-29)
DX: O99.02 Anemia complicating childbirth (principal); Z37.0 Single live birth; D64.9 Anemia, unspecified; Z3A.39 39 weeks gestation of pregnancy
CPT/HCPCS: 36415; 59409; 85025; A9270-GY; J0171; J2405; J2590; J3010; J7120; U0002

== ENCOUNTER 2022-02-22 17:17 | Observation (INO) | payer MEDICAID ==
[2022-02-22] MEDS ORDERED: Sodium Chloride 0.9% 10 ML Syringe FLUSH PRN (17:23)
[2022-02-22] MEDS ORDERED: Promethazine 25 MG/ML SDV IM PRN (17:23)
[2022-02-22] MEDS ORDERED: Ondansetron 4 MG/2 ML SDV IVPUSH PRN ×2 (17:23→17:53)
[2022-02-22] MEDS ORDERED: MVI, Adult with Vitamin K 10 ML, Folic Acid 1 MG, Thiamine 100 MG in Lactated Ringers 1... IV ONE ×4 (17:25)
[2022-02-22] MEDS ORDERED: Lactated Ringers 1,000 ML IV ONE (17:29)
[2022-02-22] MEDS ORDERED: D5 1/2 NS w/ 20 mEq/L KCl 1,000 ML IV SCH (17:30)
[2022-02-22] MEDS ORDERED: methylPREDNISolone Sodium Succinate 40 MG/1 ML SDV IVPUSH SCH (17:30)
[2022-02-22] MEDS ORDERED: METHYLPREDNISOLONE SOD SUCC IV ONE (17:54)
[2022-02-22] MEDS ORDERED: SODIUM CHLORIDE 0.9% IV ONE (17:54)
[2022-02-22] MEDS: Metoclopramide 10 MG/2 ML SDV IVPUSH SCH (18:37)
[2022-02-22] MEDS: methylPREDNISolone Sodium Succinate 40 MG/1 ML SDV IVPUSH SCH (19:22)
[2022-02-23] MEDS: Sodium Chloride 0.9% 10 ML Syringe FLUSH SCH ×2 (01:08→08:14)
[2022-02-23] MEDS: Metoclopramide 10 MG/2 ML SDV IVPUSH SCH ×2 (01:48→09:01)
[2022-02-23] MEDS: methylPREDNISolone Sodium Succinate 40 MG/1 ML SDV IVPUSH SCH ×2 (02:45→10:38)
[2022-02-23] MEDS ORDERED: Lactated Ringers 1,000 ML IV ONE (07:41)
[2022-02-23] MEDS ORDERED: MVI, Adult with Vitamin K 10 ML, Folic Acid 1 MG, Thiamine 100 MG in Lactated Ringers 1... IV ONE ×8 (07:42→10:00)
[2022-02-23 11:13] VITALS: BP 106/57; PULSE 61
== END 2022-02-23 13:25 | disposition home or self-care (01) ==
LOC: UNDOADMOB 17:17 → DL.OB 17:17 → DL.MS 17:44
PROVIDERS: ADMIT Family Medicine; ATTEND Family Medicine
DX: O21.0 Mild hyperemesis gravidarum (principal); O99.345 Other mental disorders complicating the puerperium; F53.0 Postpartum depression
CPT/HCPCS: 96365; 96366; 96367; 96372; 96375; 96376; G0378; G0379; J2550; J2765; J2920; J3411; J3480; J3490; J7120

== ENCOUNTER 2022-03-08 23:54 | Emergency (ER) | payer MEDICAID ==
[2022-03-09 00:28] VITALS: BP 120/84; PULSE 74
== END 2022-03-09 03:55 ==
LOC: DL.ED 23:54
DX: O02.1 Missed abortion (principal); Z72.0 Tobacco use
CPT/HCPCS: 36415; 76830; 84702; 85025; 99284; 99285

== ENCOUNTER 2023-03-08 10:16 | Emergency (ER) | payer MEDICAID ==
[2023-03-08 10:29] VITALS: BP 130/79; PULSE 69
[2023-03-08] MEDS ORDERED: Dexamethasone 4 MG/ML SDV IM ONE (10:36)
== END 2023-03-08 11:05 | disposition home or self-care (01) ==
LOC: DL.ED 10:16
DX: M54.50 Low back pain, unspecified (principal); F17.210 Nicotine dependence, cigarettes, uncomplicated
CPT/HCPCS: 96372; 99283; J1100

== ENCOUNTER 2023-11-26 23:35 | Emergency (ER) | payer MEDICAID ==
[2023-11-27 00:01] VITALS: BP 114/72; PULSE 75
[2023-11-27 00:16] LABS: HEMATOCRIT 33.4 % (37.0-47.0); HEMOGLOBIN 10.8 g/dL (12.0-16.0); MEAN CORPUSCULAR HEMOGLOBIN 25.5 pg (27.0-34.0); MEAN CORPUSCULAR HGB CONC 32.3 g/dL (33.0-35.0); MEAN CORPUSCULAR VOLUME 78.8 fL (80-100); PLATELET COUNT,PLT 295 10^3/uL (150-450); RED BLOOD CELL COUNT 4.24 10^6/uL (4.2-5.4); WHITE BLOOD CELL COUNT,WBC 16.3 10^3/uL (5.0-10.0)
[2023-11-27 00:24] LABS: BASOPHILS PERCENT AUTO 0.5 % (0.0-1.0); EOSINOPHILS PERCENT AUTO 1.8 % (1.0-3.0); MONOCYTES PERCENT AUTO 6.2 % (2-8); NEUTROPHILS PERCENT AUTO 55.5 % (42.2-75.2)
[2023-11-27 00:35] LABS: A/G RATIO 0.9; ALBUMIN 3.6 g/dL (3.4-5.0); ANION GAP 11.8 mEq/L (7-13); BILIRUBIN TOTAL 0.2 mg/dL (0.2-1.0); BUN/CREATININE RATIO 15.2 (No establ ref range); CALCIUM 8.5 mg/dL (8.5-10.1); CREATININE 1.38 mg/dL (0.55-1.02); EST CRCL DRUG DOSING (CG) 63.87 mL/min; POTASSIUM,K 3.8 mmol/L (3.5-5.1); PROTEIN TOTAL,TP 7.4 g/dL (6.4-8.2)
[2023-11-27] MEDS ORDERED: Sodium Chloride 0.9% 10 ML Syringe FLUSH PRN (00:38)
[2023-11-27] MEDS: Lactated Ringers 1,000 ML IV ONE (00:56)
[2023-11-27] MEDS: Albuterol/Ipratropium 3.0-0.5 MG/3 ML Neb Soln NEB ONE (00:57)
[2023-11-27 01:03] LABS: LACTIC ACID 1.1 mmol/L (0.4-2.0)
[2023-11-27 01:07] LABS: BAND PERCENT MAN 1 %; EOSINOPHILS PERCENT MAN 2 % (1-3); LYMPHOCYTES % ATYPICAL MANUAL 5 %; LYMPHOCYTES PERCENT MAN 27 % (20-50); MONOCYTES PERCENT MAN 6 % (2-8); SEG NEUTROPHILS PERCENT MAN 59 % (42-75)
[2023-11-27 01:27] LABS: APPEARANCE,URINE CLEAR (CLEAR); BILIRUBIN,URINE NEGATIVE (NEGATIVE); COLOR,URINE YELLOW (YELLOW); GLUCOSE,URINE NEGATIVE (NEGATIVE); KETONES,URINE TRACE (NEGATIVE); LEUKOCYTE ESTERASE,URINE NEGATIVE (NEGATIVE); NITRITE,URINE NEGATIVE (NEGATIVE); OCCULT BLOOD,URINE NEGATIVE (NEGATIVE); PH,URINE 5.5 (5.0-9.0); PROTEIN,URINE TRACE (NEGATIVE); UROBILINOGEN,URINE 0.2 mg/dL (0.2-1.0)
[2023-11-27 01:38] LABS: BACTERIA,URINE FEW /HPF (0-FEW/HPF); EPITHELIAL CELLS,URINE MODERATE /HPF (NOT SEEN); MUCUS,URINE MODERATE /LPF (NOT SEEN); RBC,URINE 0-5 /HPF (0-5)
== END 2023-11-27 02:24 | disposition home or self-care (01) ==
LOC: DL.ED 23:35
DX: J20.9 Acute bronchitis, unspecified (principal); F17.210 Nicotine dependence, cigarettes, uncomplicated; N17.9 Acute kidney failure, unspecified; J45.909 Unspecified asthma, uncomplicated; E66.9 Obesity, unspecified; Z79.899 Other long term (current) drug therapy
CPT/HCPCS: 36415; 71045; 80053; 81001; 83605; 85025; 87635; 93005; 93010; 96360; 99283; 99285; J7120; J7620-GY; U0002

== ENCOUNTER 2023-12-15 21:21 | Emergency (ER) | payer MEDICAID ==
[2023-12-15 22:01] VITALS: BP 118/87; PULSE 82
== END 2023-12-15 22:24 | disposition home or self-care (01) ==
LOC: DL.ED 21:21
DX: J40 Bronchitis, not specified as acute or chronic (principal); E66.9 Obesity, unspecified; F17.210 Nicotine dependence, cigarettes, uncomplicated; Z68.34 Body mass index [BMI] 34.0-34.9, adult
CPT/HCPCS: 99284

== ENCOUNTER 2023-12-18 18:49 | Emergency (ER) | payer MEDICAID ==
[2023-12-18 19:20] VITALS: BP 121/80; PULSE 77
[2023-12-18 21:04] LABS: APPEARANCE,URINE CLEAR (CLEAR); BILIRUBIN,URINE NEGATIVE (NEGATIVE); COLOR,URINE YELLOW (YELLOW); GLUCOSE,URINE NEGATIVE (NEGATIVE); KETONES,URINE NEGATIVE (NEGATIVE); LEUKOCYTE ESTERASE,URINE NEGATIVE (NEGATIVE); NITRITE,URINE NEGATIVE (NEGATIVE); OCCULT BLOOD,URINE TRACE-INTACT (NEGATIVE); PROTEIN,URINE 30 (NEGATIVE); UROBILINOGEN,URINE 0.2 mg/dL (0.2-1.0)
[2023-12-18 21:15] LABS: BACTERIA,URINE RARE /HPF (0-FEW/HPF); EPITHELIAL CELLS,URINE FEW /HPF (NOT SEEN); MUCUS,URINE FEW /LPF (NOT SEEN); WBC,URINE 0-5 /HPF (0-5/HPF)
[2023-12-20 10:46] LABS: C.TRACHOMATIS BY TMA Negative (Negative); N.GONORRHOEAE BY TMA Negative (Negative); SOURCE URINE
== END 2023-12-18 21:58 | disposition home or self-care (01) ==
LOC: DL.ED 18:49
DX: N89.8 Other specified noninflammatory disorders of vagina (principal); R10.13 Epigastric pain; J45.909 Unspecified asthma, uncomplicated; E66.9 Obesity, unspecified; F17.210 Nicotine dependence, cigarettes, uncomplicated; Z79.51 Long term (current) use of inhaled steroids; Z79.899 Other long term (current) drug therapy; Z68.32 Body mass index [BMI] 32.0-32.9, adult
CPT/HCPCS: 81001; 87210; 87491; 87591; 93005; 93010; 99283; 99285

== ENCOUNTER 2024-05-10 02:55 | Emergency (ER) | payer MEDICAID ==
[2024-05-10 03:05] VITALS: BP 129/80; PULSE 69
[2024-05-10 03:32] LABS: BASOPHILS PERCENT AUTO 0.6 % (0.0-1.0); EOSINOPHILS PERCENT AUTO 4.8 % (1.0-3.0); HEMATOCRIT 35.4 % (37.0-47.0); HEMOGLOBIN 11.3 g/dL (12.0-16.0); LYMPHOCYTES PERCENT AUTO 36.6 % (20.5-50.1); MEAN CORPUSCULAR HEMOGLOBIN 25.2 pg (27.0-34.0); MEAN CORPUSCULAR HGB CONC 31.9 g/dL (33.0-35.0); MONOCYTES PERCENT AUTO 4.6 % (2-8); NEUTROPHILS PERCENT AUTO 53.4 % (42.2-75.2); PLATELET COUNT,PLT 240 10^3/uL (150-450); RED BLOOD CELL COUNT 4.48 10^6/uL (4.2-5.4); WHITE BLOOD CELL COUNT,WBC 10.4 10^3/uL (5.0-10.0)
[2024-05-10 03:58] LABS: A/G RATIO 0.9; ALBUMIN 3.8 g/dL (3.4-5.0); ANION GAP 14.9 mEq/L (7-13); BILIRUBIN TOTAL 0.3 mg/dL (0.2-1.0); BUN/CREATININE RATIO 8.8 (No establ ref range); CALCIUM 8.6 mg/dL (8.5-10.1); CREATININE 1.13 mg/dL (0.55-1.02); EST CRCL DRUG DOSING (CG) 77.29 mL/min; MAGNESIUM 2.1 mg/dL (1.8-2.4); POTASSIUM,K 3.9 mmol/L (3.5-5.1)
== END 2024-05-10 04:29 | disposition home or self-care (01) ==
LOC: DL.ED 02:55
DX: R20.2 Paresthesia of skin (principal); J45.909 Unspecified asthma, uncomplicated; F17.210 Nicotine dependence, cigarettes, uncomplicated; Z79.51 Long term (current) use of inhaled steroids; Z79.899 Other long term (current) drug therapy; Z86.16 Personal history of COVID-19
CPT/HCPCS: 36415; 71045; 80053; 83735; 85025; 99284

== ENCOUNTER 2024-08-15 01:10 | Emergency (ER) | payer MEDICAID ==
[2024-08-15 01:35] VITALS: BP 126/68; PULSE 66
[2024-08-15] MEDS ORDERED: Sodium Chloride 0.9% 10 ML Syringe FLUSH PRN (01:39)
[2024-08-15 02:03] LABS: BASOPHILS PERCENT AUTO 0.5 % (0.0-1.0); EOSINOPHILS PERCENT AUTO 4.3 % (1.0-3.0); LYMPHOCYTES PERCENT AUTO 35.4 % (20.5-50.1); MONOCYTES PERCENT AUTO 5.1 % (2-8); NEUTROPHILS PERCENT AUTO 54.7 % (42.2-75.2); PLATELET COUNT,PLT 260 10^3/uL (150-450); RED BLOOD CELL COUNT 4.08 10^6/uL (4.2-5.4); WHITE BLOOD CELL COUNT,WBC 8.8 10^3/uL (5.0-10.0)
[2024-08-15 02:29] LABS: D-DIMER QUANTITATIVE 355.0 ng/mL (0-400); HCG QUALITATIVE,SERUM NEGATIVE (NEGATIVE); LACTIC ACID 1.1 mmol/L (0.4-2.0)
[2024-08-15 02:30] LABS: A/G RATIO 1.0; ALANINE AMINOTRANSFERASE,ALT 34 U/L (14-59); ASPARTATE AMNIOTRANSFERASE,AST 18 U/L (15-37); BILIRUBIN TOTAL 0.3 mg/dL (0.2-1.0); BLOOD UREA NITROGEN,BUN 11 mg/dL (7-18); CARBON DIOXIDE,CO2 27 mmol/L (21-32); CHLORIDE,CL 103 mmol/L (98-107); CREATININE 1.08 mg/dL (0.55-1.02); EST CRCL DRUG DOSING (CG) 78.15 mL/min; GLUCOSE RANDOM 103 mg/dL (70-99); POTASSIUM,K 3.7 mmol/L (3.5-5.1); PROTEIN TOTAL,TP 8.0 g/dL (6.4-8.2); SODIUM,NA 136 mmol/L (136-145)
[2024-08-15 02:31] LABS: ESTIMATED GFR 70 mL/min (>=60); ETHANOL BLOOD MEDICAL < 3 mg/dL (0)
[2024-08-15 02:33] LABS: INR 0.9 (0.9-1.2); PTT,PARTIAL THROMBOPLSTIN TIME 26.0 SEC (22.0-34.0)
== END 2024-08-15 03:44 | disposition home or self-care (01) ==
LOC: DL.ED 01:10
DX: S29.011A Strain of muscle and tendon of front wall of thorax, initial encounter (principal); J45.909 Unspecified asthma, uncomplicated; F17.210 Nicotine dependence, cigarettes, uncomplicated; Z79.51 Long term (current) use of inhaled steroids; Z79.899 Other long term (current) drug therapy; Z86.16 Personal history of COVID-19; X58.XXXA Exposure to other specified factors, initial encounter; Y93.89 Activity, other specified
CPT/HCPCS: 36415; 71045; 80053; 80307; 83605; 84145; 84484; 84703; 85025; 85379; 85610; 85730; 93005; 99285